=== PATIENT | female | born 1960 | race Caucasian/White ===

== ENCOUNTER → 2019-08-25 09:53 | Outpatient (CLI) | payer MEDICARE ==
[~2019-08-25 09:53] MED LIST: ELIQUIS5 MG PO; HYDROCODON-ACET15 ML PO; ISOSORBIDE MONO60 M1 PO; KLONOPIN0.5 MG PO; LASIX20 MG PO; LIPITOR80 MG PO; PACERONE200 MG PO; PROVENTIL/2.5 MG/3 M; SEROQUEL50 MG PO; TOPROL XL25 MG PO; VITAMIN D250000 UNIT PO; WELLBUTRIN SR150 MG PO
[2019-08-25 13:10] LABS: APPEARANCE CLOUDY (CLEAR); COLOR YELLOW (YELLOW); GLUCOSE NEGATIVE (NEGATIVE); NITRITE POSITIVE (NEGATIVE); SPECIFIC GRAVITY 1.025 (1.005-1.020)
[2019-08-25 13:11] LABS: BACTERIA MANY /hpf (NEGATIVE); BILIRUBIN NEGATIVE (NEGATIVE); EPITHELIAL CELLS 0-5 /hpf (0-5); KETONE NEGATIVE (NEGATIVE); MUCUS <1+ /lpf (NONE SEEN); PROTEIN TRACE mg/dL (NEGATIVE); RED CELLS - URINE RARE /hpf (0-5); UROBILINOGEN NORMAL (NORMAL); WHITE CELLS - URINE RARE /hpf (NEGATIVE)
== END | disposition home or self-care (01) ==
LOC: D.PAN 08-22 14:30
PROVIDERS: ATTEND Orthopaedic Surgery
DX: M17.12 Unilateral primary osteoarthritis, left knee (principal)

== ENCOUNTER → 2020-04-19 16:10 | Outpatient (CLI) | payer MEDICARE ==
[2019-10-08 13:55] VITALS: BMI 50.1
[~2020-04-19 16:10] MED LIST changes: +HYDROCODON-ACE1 EA10 PO; +KEFLEX500 MG PO; +OXYCODONE HCL5 M1 PO; +TAMIFLU75 MG PO; +VISTARIL50 MG PO
== END | disposition home or self-care (01) ==
LOC: D.LAB 16:10
PROVIDERS: ATTEND Orthopaedic Surgery
DX: M17.11 Unilateral primary osteoarthritis, right knee (principal); R50.9 Fever, unspecified

== ENCOUNTER 2020-04-26 13:28 | Inpatient (IN) | payer MEDICARE, MEDICAID ==
[~2020-04-26] VITALS: Ht 160 cm; Wt 134.5 kg
[2020-05-24] MEDS ORDERED: HYDROCODON-ACE1 EA10 PO (10:47)
[2020-05-24 13:03] LABS: ANION GAP 8.9 mmol/L (8-16); CALCIUM 9.3 mg/dL (8.5-10.1); CARBON DIOXIDE 29.5 mmol/L (21.0-32.0); CREATININE - SERUM 1.5 mg/dL (0.6-1.3); POTASSIUM - SERUM 3.4 mmol/L (3.5-5.1)
[2020-05-24 13:10] LABS: BASOPHILS 0.7 % (0-2); EOSINOPHILS 2.9 % (0-7); HEMATOCRIT 39.8 % (36.0-48.0); HEMOGLOBIN 12.1 g/dL (12-16); IMMATURE GRANULOCYTES 0.2 % (0-5); LYMPHOCYTES 34.7 % (15-50); MCH 26.4 pg (26.0-34.0); MCHC 30.4 g/dL (31.0-37.0); MCV 86.9 fL (80.0-100.0); MEAN PLATELET VOLUME 11.2 fL (7.4-10.4); MONOCYTES 7.9 % (2-11); NEUTROPHILS 53.6 % (40-80); RBC 4.58 10x6/uL (4.00-5.40); RDW 16.5 % (11.5-14.5); WBC 8.9 10x3/uL (4.8-10.8)
[2020-05-24 13:20] LABS: BILIRUBIN NEGATIVE (NEGATIVE); KETONE NEGATIVE (NEGATIVE); NITRITE NEGATIVE (NEGATIVE)
[2020-05-24 13:25] LABS: PLATELET COUNT 297 10x3/uL (130-400)
[2020-05-24 13:49] LABS: INR 0.94 (0.85-1.17); PROTIME 12.5 SECONDS (11.6-15.0)
[2020-05-25] VITALS (13 sets, daily range): BP systolic 116–178; BP diastolic 60–112; BMI 49.7; BMI 52.6
--- NOTE | 2020-05-25 12:05 | NUR ---
THROUGH TRAFFIC KEPT TO A MINIMUM. HIBALENS AND ALCOHOL USED TO CLEAN BEFORE PREPPING. STERILE GOWNED AND GLOVED TO PREP WITH CHLORAPREP.
--- NOTE | 2020-05-25 14:12 | NUR ---
DAUGHTER NORA CALLED AND IN ROOM NOW. BED ALARM ON. QUICK START, ADMISSION HISTORY, AND SUICIDE SCREENING DONE. CL IN REACH. PT EATING AT THIS TIME. WILL DO SHIFT ASSESSMENT AFTER PT EATS. MEDS GIVEN PER EMAR. WCTM
--- NOTE | 2020-05-25 20:00 | NUR ---
ALERT RESTING IN BED CPM IN USE, DENIES NEEDS AT THIS TIME, SEE SHIFT ASSESSMENT, CALL LIGHT IN REACH
[2020-05-26] VITALS: BP 147/85
--- NOTE | 2020-05-26 02:30 | NUR ---
IN AN OUT CATH DONE DUE TO PT STATES HAS NOT VOIDED, 500CC STEPAN COLORED URINE RETURNED
[2020-05-26 04:00] VITALS: BP 135/88
[2020-05-26 06:46] LABS: BASOPHILS 0.9 % (0-2); EOSINOPHILS 2.2 % (0-7); HEMATOCRIT 36.3 % (36.0-48.0); HEMOGLOBIN 10.6 g/dL (12-16); IMMATURE GRANULOCYTES 0.2 % (0-5); LYMPHOCYTES 20.2 % (15-50); MCH 26.2 pg (26.0-34.0); MCHC 29.2 g/dL (31.0-37.0); MEAN PLATELET VOLUME 11.6 fL (7.4-10.4); MONOCYTES 10.6 % (2-11); NEUTROPHILS 65.9 % (40-80); PLATELET COUNT 272 10x3/uL (130-400); RBC 4.05 10x6/uL (4.00-5.40); RDW 16.5 % (11.5-14.5)
[2020-05-26 06:56] LABS: MCV 89.6 fL (80.0-100.0)
[2020-05-26 07:06] LABS: ALBUMIN 2.9 g/dL (3.4-5.0); ANION GAP 11.3 mmol/L (8-16); BILIRUBIN - TOTAL 0.36 mg/dL (0.2-1.3); CALCIUM 8.2 mg/dL (8.5-10.1); CARBON DIOXIDE 27.9 mmol/L (21.0-32.0); CREATININE - SERUM 1.7 mg/dL (0.6-1.3); PROTEIN - SERUM 6.6 g/dL (6.4-8.2)
[2020-05-26 07:07] LABS: POTASSIUM - SERUM 4.2 mmol/L (3.5-5.1)
--- NOTE | 2020-05-26 07:49 | NUR ---
AWAKE AND ALERT. ORIENTED X3. REQUESTED AND GIVEN 1MG DILAUDID SLOW IVP FOR C/O NO PAIN RELIEF IN PM. WILL MONITOR. LUNGS ARE CLEAR BILATERALLY, NO COUGH NOTED. SKIN IS INTACT EXCEPT INCISION TO LEFT KNEE WHICH HAS A DRY INTACT DRESSING IN PLACE. REQUESTED CPM OFF AT THIS TIME. BREAKFAST SERVED IN ROOM. DOING WELL WITH FEEDING SELF. DENIES NEEDS.
[2020-05-26 09:00] VITALS: BP 127/82
--- NOTE | 2020-05-26 09:00 | NUR ---
CONFUSED AT THIS TIME. UNABLE TO FOLLOW SIMPLE INSTRUCTIONS. PT WILL PASS THIS AM FOR THERAPY. WILL MONITOR. BED ALARM ON.
--- NOTE | 2020-05-26 09:30 | NUR ---
COUGHING LOUDLY AND CHOKING. GURGLING LOUDLY IN THROAT. O2 SAT AT 55 ON INITIAL CHECK. ALEX FROM RT HERE AND PLACED ON OXYGEN. REPOSITIONED IN BED FOR BETTER LUNG EXPANTION. O2 SAT UP TO 81% AT THIS TIME. PLACED ON 8L HIGH FLOW AND O2 SAT UP TO 94%. PATIENT STATED THIS IS HER NORMAL. NO FURTHER COUGHING NOTED. COLOR WNL. DENIES NEEDS.
[2020-05-26 10:37] VITALS: Ht 160 cm; Wt 134.5 kg
--- NOTE | 2020-05-26 11:00 | NUR ---
RESTING QUIETLY. RESPIRATIONS EVEN AND UNLABORED.
--- NOTE | 2020-05-26 12:30 | NUR ---
LUNCH SERVED IN ROOM. FEEDS SELF. CONTINUES SOMEWHAT CONFUSED.
--- NOTE | 2020-05-26 14:36 | OP ---
PATIENT NAME: IRVIN RAMIRES MEDICAL RECORD: [id number] :62 LOCATION:[facility] D.1209 ADMISSION DATE:05/25/20 SURGEON: LONNY VILLA DO DATE OF OPERATION: 05/25/2020 PROCEDURE PERFORMED: Right total knee arthroplasty. PREOPERATIVE DIAGNOSIS: Right knee osteoarthritis. POSTOPERATIVE DIAGNOSIS: Right knee osteoarthritis. INDICATIONS: Ms. Ramires is a 59-year-old female who has had right knee pain for quite some time. She had her left knee replaced a while back, I believe this year. She did okay with that and wanted the right one done. She is aware of the risks including infection, bleeding, damage to nerves or vessels in the area, continued pain, arthrofibrosis, failure of implants and fracture, blood clots, and even and she signed the consent. SURGEON: Lonny Villa DO DESCRIPTION OF PROCEDURE: The patient was taken to operative suite after receiving a block by anesthesia in the preoperative area, laid in the supine position, given general anesthetic, and an LMA was placed. She was given 2 g of Ancef and 80 mg of gentamicin preoperatively and after that, the right lower extremity was prepped and draped in sterile fashion. A time-out was performed and everyone was in agreement with the correct side, site, patient, and procedure. She did have an LMA placed after being sedated. The incision was then marked out over the anterior knee and covered in Ioban. . Then, using a 10 blade scalpel, I made careful dissection down to the capsule through the skin. Using a fresh 10 blade, I did a medial parapatellar approach to the capsule and everted the patella and removed part of the fat pad and then milled down the patella for implant. I then brought the knee into flexion and removed the ACL and then put a drill into the intramedullary canal of the femur. I then used an intramedullary guide on the distal femur, pinned it in place, and cut the distal femur. I then exposed the proximal tibia using extramedullary guide and pinned it and cut the proximal tibia. I removed the menisci and the proximal tibia cut. I then brought the knee into extension, coagulating vessels with Aquamantys any bleeding. I then used a 10 extension block and it fit very well. I then flexed the knee, upsized the femur to be 62.5. A 62.5 four-in-one cutting block was then put into place. Richard wing was used to ensure there was no notching. I then pinned that in the place and cut the distal femur through the four-in-one cutting block. I then remove that and then put the posterior stabilized guide on and pinned it into place and cut the block out from posterior stabilized notch of the femur. I then drilled the lugholes, removed the guide, and put on the trial. I then put in the tibia, 10 poly, and the tray and ranged it, marked the rotation, removed that, and drilled for the patella. I then removed the trial of the femur. I then exposed the tibia, sized it to be a 67, and then reamed and punched it and put extra holes in the tibia for the cement. Cement was then mixed and put in the tibia and on the implant. The implant was impacted on the tibia and into place. Excess cement was removed. I then impacted the femur on, put a 10 poly in between them, and brought the knee into extension, cleaned off of the patella with irrigation and curetted. The holes were filled with cement and then on the patella implant, squeezed into place and then while that was squeezed and held into place, excess cement was removed from that and the tibia again. The 10% povidone-iodine solution with OPERATIVE REPORT [id number] IRVIN RAMIRES 500 mL normal saline solution was put in the knee and let it sit for 3 minutes and irrigated out with over a liter of normal saline. I then trialed with a 12 poly. A 12 poly fit well, 12 posterior stabilized plus poly was put in and secured in place with the locking bar. The locking bar was clicked in and then Yvonne and vancomycin and tobramycin powder were put in the knee. I then closed the capsule with #1 Vicryl in a [id number] fashion. This was done by myself and Joaquin Roy, certified director medical surgical. Joaquin then closed the skin with 2-0 Vicryl in inverted interrupted fashion and put a ZipLine on the knee. She was dressed not with a dressing but with a Prevena Restore VAC, awakened, and taken to recovery in stable condition. BLOOD LOSS: Approximately 200 mL. COMPLICATIONS: None. NTS:[id number] Voice Confirmation ID: [id number] DOCUMENT ID: [id number] LONNY VILLA DO at 1436 CC: [id number] DICTATION DATE: 05/25/20 1158 HIGH SPEED OPERATOR: 05/25/20 194 [facility] IN [facility] [address] [id number]
--- NOTE | 2020-05-26 18:46 | NUR ---
RESTING QUIETLY IN BED WITH EYES CLOSED. SPOKE WITH SAEED STOKES RE NEED OF MALA FOR PROBABLE RETENTION. ORDER RECEIVED.
[2020-05-26 20:00] VITALS: BP 121/82
--- NOTE | 2020-05-26 20:00 | NUR ---
RESTING IN BED AROUSES EASILY BUT APPEARS DROWSEY, O2 IN USE, CPM IN USE, SEE SHIFT ASSESSMENT, CALL LIGHT IN REACH, SAEED ANP NOTIFIED OF ELEVATED TEMP AND RHONCHI IN LUNGS, ORDERS RECIEVED FOR BLOOD CULTURES AND UA AND TO CALL DR VICTORIA
--- NOTE | 2020-05-26 20:30 | NUR ---
DR VICTORIA HERE TO SEE PT, ORDERS RECIEVED, MEDEIROS CATH PLACED AT THIS TIME WITH RETURN OF 500CC STEPAN COLORED URINE
--- NOTE | 2020-05-26 21:30 | NUR ---
IV RESITED 22G X 1 ATTEMPT LEFT FORARM, ANTIABIOTICS STARTED ORDERED
[2020-05-26 23:55] LABS: BILIRUBIN NEGATIVE (NEGATIVE); KETONE NEGATIVE (NEGATIVE); NITRITE NEGATIVE (NEGATIVE); UROBILINOGEN NORMAL mg/dL (< 2)
[2020-05-26 23:57] LABS: BACTERIA MODERATE HPF (NONE SEEN); EPITHELIAL CELLS 0-5 /hpf (0-5); YEAST >1+ /hpf (NONE SEEN)
[2020-05-27 05:00] VITALS: BP 98/53
--- NOTE | 2020-05-27 06:00 | NUR ---
HAS IS IN ROOM ENCOURAGED TO USE 10X HR WHILE AWAKE
--- NOTE | 2020-05-27 07:30 | NUR ---
AWAKE AND ALERT. ORIENTED X3. NO C/O AT THIS TIME. LUNGS ARE CLEAR BUT DIMINISHED THROUGHOUT. CONTINUES WITH PRODUCTIVE COUGH. SKIN IS INTACT WITHOUT REDNESS EXCEPT INCISION TO RIGHT KNEE WHICH HAS A PROVENA WOUND VAC IN PLACE WITH SCANT OUTPUT. WILL CONTINUE TO MONITOR. SL TO LEFT FOREARM IS PATENT WITHOUT REDNESS AT INSERTION SITE. MEDEIROS PATENT WITH CLEAR YELLOW URINE. CPM IN PLACE TO RIGHT KNEE AT THIS TIME. DENIES NEEDS.
[2020-05-27 07:40] LABS: BASOPHILS 0.1 % (0-2); EOSINOPHILS 0 % (0-7); HEMATOCRIT 30.9 % (36.0-48.0); IMMATURE GRANULOCYTES 0.3 % (0-5); LYMPHOCYTES 6.7 % (15-50); MCHC 29.1 g/dL (31.0-37.0); MCV 89.3 fL (80.0-100.0); MEAN PLATELET VOLUME 11.4 fL (7.4-10.4); MONOCYTES 4.4 % (2-11); NEUTROPHILS 88.5 % (40-80); PLATELET COUNT 244 10x3/uL (130-400); RBC 3.46 10x6/uL (4.00-5.40); RDW 16.6 % (11.5-14.5)
[2020-05-27 07:42] LABS: WBC 13.1 10x3/uL (4.8-10.8)
[2020-05-27 08:00] LABS: ALBUMIN 2.6 g/dL (3.4-5.0); ANION GAP 13.1 mmol/L (8-16); BILIRUBIN - TOTAL 0.43 mg/dL (0.2-1.3); CALCIUM 8.2 mg/dL (8.5-10.1); CARBON DIOXIDE 25.6 mmol/L (21.0-32.0); CREATININE - SERUM 2.4 mg/dL (0.6-1.3); POTASSIUM - SERUM 4.7 mmol/L (3.5-5.1); PROTEIN - SERUM 5.8 g/dL (6.4-8.2)
[2020-05-27 08:04] VITALS: BP 148/89
--- NOTE | 2020-05-27 10:05 | NUR ---
ATE ALL OF BREAKFAST. TOOK AM MEDS WITHOUT DIFFICULTY. REQUESTED AND GIVEN ONE HYDROCODONE PO FOR C/O RIGHT KNEE PAIN LEVEL 8. WILL MONITOR.
--- NOTE | 2020-05-27 10:47 | EC ---
PATIENT:IRVIN RAMIRES DATE OF SERVICE: 05/25/20 SEX: F MEDICAL RECORD: [id number] DATE OF : 62 [facility] AGE OF PATIENT: 59 ADMISSION DATE: 05/25/20 REFERRING PHYSICIAN: INTERPRETING PHYSICIAN: OUMOU WRIGHT MD ECHOCARDIOGRAM REPORT ECHO CHARGES 4 ECHO COMPLETE Date: 05/26/20 CLINICAL DIAGNOSIS: R/O CHF ECHOCARDIOGRAPHIC MEASUREMENTS (adult normal given) AC root (d.<3.7cm) 3.4 cm LV Septum d (<1.2 cm> 1.4 cm Valve Excursion 1.4 cm LV Septum (systole) 1.5 cm Left Atria (s.<4.0cm> 3.6 cm LVPW d(<1.2cm) 1.0 cm RV (d.<2.3cm) 2.9 cm LVPW (sytole) 1.3 cm LV diastole(<5.6CM) 6.8 cm MV E-F(>70mm/sec) cm LV systole 5.2 cm LVOT Diameter 1.8 cm MV exc.(>10mm) 0.6 cm Est.ejection fraction (50-75%) % DOPPLER: LVIT cm/sec A 122 cm/sec E 120 cm/sec LA cm/sec RVSP 21 mmHg LVOT 100 cm/sec AOP1/2T m/s Asc. Ao 159 cm/sec RVOT 104 cm/sec RA cm/sec PA 120 cm/sec AV Gradient Peak 10.1 mmHg AV Mean 5.8 mmHg AV Area 1.3 cm MV Gradient Peak 4.5 mmHg MV Mean 2.4 mmHg MV Area cm COMMENTS: Laborer Wood Preserving Plant: Candice NOLASCO Image Processing Engineer: 3 Dr. Lopez TAPE# [id number] Pericardial Effusion N DATE OF SERVICE: Adequate 2D, color flow imaging, spectral Doppler, and M-mode. Mild LVH. LV internal dimensions are normal. Wall motion normal. EF greater than or equal to 55%. Aortic valve is tricuspid. No evidence of stenosis by Doppler interrogation. Left atrium is normal. Mitral valve shows no prolapse. Trace MR. Right-sided chambers are grossly normal. Trace TR. TRANSINT:[id number] Voice Confirmation ID: [id number] DOCUMENT ID: [id number] ECHOCARDIOGRAM REPORT [id number] IRVIN RAMIRES OUMOU WRIGHT MD at 1047 CC: [id number] DICTATION DATE: 05/26/20 1643 BUSINESS PERFORMANCE SPECIALIST: 05/26/20 2334 ADM IN [place] [id number] [place] [id number]
--- NOTE | 2020-05-27 13:30 | NUR ---
AMBULATED WITH PT. O2 SAT DROPPED TO 85%. AFTER O2 PLACED AT 2L NC RAPID RECOVERY TO 92%. WILL MONITOR.
[2020-05-27 16:04] VITALS: BP 145/78
--- NOTE | 2020-05-27 16:30 | NUR ---
FOUND WITH O2 OFF. SAT AT 89%. O2 PLACED AT 2L NC SAT UP TO 93% WITHIN A FEW SECONDS.
[2020-05-27 18:17] VITALS: BP 114/73
--- NOTE | 2020-05-27 18:27 | NUR ---
ATE ALL OF SUPPER. DENIES NEEDS. NO CHANGES NOTED. MEDEIROS CLAMPED AT THIS TIME TO COLLECT SPECIMEN.
--- NOTE | 2020-05-27 22:23 | NUR ---
RECEIVED PATIENT IN ROOM. PATIENT IS AAOX3. PATIENT IS ON CPM MACHINE AND DOING WELL. PATIENT HAS A MEDEIROS THAT WAS CLAMPED TO OBTAIN A URINE SPECIMEN FOR UA AND CULTURE WHICH WAS OBTAINED PER THIS NURSE AND TAKEN TO LAB. PATIENT TOOK HS MEDS. CALL LIGHT WITHIN REACH. WILL FOLLOW POC
[2020-05-28 00:32] VITALS: BP 155/65
[2020-05-28 06:35] VITALS: BP 142/79
[2020-05-28 06:56] LABS: BASOPHILS 0.1 % (0-2); EOSINOPHILS 0 % (0-7); HEMATOCRIT 28.1 % (36.0-48.0); HEMOGLOBIN 8.4 g/dL (12-16); IMMATURE GRANULOCYTES 0.1 % (0-5); LYMPHOCYTES 9.5 % (15-50); MCH 26.2 pg (26.0-34.0); MCHC 29.9 g/dL (31.0-37.0); MCV 87.5 fL (80.0-100.0); MEAN PLATELET VOLUME 11.2 fL (7.4-10.4); MONOCYTES 7.1 % (2-11); NEUTROPHILS 83.2 % (40-80); PLATELET COUNT 222 10x3/uL (130-400); RBC 3.21 10x6/uL (4.00-5.40); RDW 16.5 % (11.5-14.5); WBC 14.5 10x3/uL (4.8-10.8)
--- NOTE | 2020-05-28 07:29 | NUR ---
PT ASLEEP ON BACK. NO NEEDS AT THIS TIME. CL IN REACH. BED ALARM ON. WCTM
[2020-05-28 07:39] LABS: ALBUMIN 2.4 g/dL (3.4-5.0); ALKALINE PHOSPHATASE 97 U/L (30-120); ALT (SGPT) 10 U/L (10-68); BILIRUBIN - TOTAL 0.31 mg/dL (0.2-1.3); CALC OSMOLALITY 294 mosm/kg (275-300); CALCIUM 8.4 mg/dL (8.5-10.1); CARBON DIOXIDE 23.8 mmol/L (21.0-32.0); CHLORIDE - SERUM 110 mmol/L (98-107); CREATINE KINASE 274 UL (21-215); CREATININE - SERUM 1.9 mg/dL (0.6-1.3); GLUCOSE 125 mg/dL (74-106); PROTEIN - SERUM 5.5 g/dL (6.4-8.2); SODIUM 144 mmol/L (136-145); UREA NITROGEN 32 mg/dL (7-18); URIC ACID 8.4 mg/dL (2.6-7.2); eGFR NON AFRICAN AMERICAN 29 mL/min (90-120)
[2020-05-28 07:41] LABS: CKMB 1.8 U/L (0.0-3.6)
[2020-05-28 08:32] VITALS: BP 142/78
[2020-05-28] MEDS ORDERED: KEFLEX500 MG PO (10:14)
[2020-05-28] MEDS ORDERED: VISTARIL50 MG PO (10:14)
[2020-05-28] MEDS ORDERED: HYDROCODON-ACE1 EA10 PO (10:14)
[2020-05-28 11:13] VITALS: BP 152/84
--- NOTE | 2020-05-28 13:04 | NUR ---
Nutrition Follow-up: POD 3 right TKA Diet: Regular PO intake: was 25-50% x all. She states that recently her appetite has improved. States that she ate 100% of her breakfast meal. She was eating lunch at time of my visit and had eaten much of it already. She also states that her sister is bring food into her. Last BM: 06/15/20. Wt: 296.5# (05/26/20) Meds noted: solumedrol, lasix. Labs noted: Alb 2.4(L), Glu 125(H), GFR 29(L), BUN 32(H), Cr 1.9(H) Recommend continue current diet. RD following.
--- NOTE | 2020-05-28 13:34 | NUR ---
PT ASSISTED TO BSC AND BACK TO BED. CL IN REACH. WCTM
--- NOTE | 2020-05-28 15:15 | MORECARE ---
CASE MANAGEMENT DISCHARGE SUMMARY PATIENT: IRVIN RAMIRES UNIT: [id number] ADM DATE: 05/25/20 AGE: 59 : 62 SEX: F ROOM/BED: D.1209 AUTHOR: JOSE E BROWN PHYSICIAN: REFERRING PHYSICIAN: VINCE VILLA DO DATE OF SERVICE: 05/28/20 Discharge Plan Patient Name: IRVIN RAMIRES Facility: [facility]:[place] : 1960 Planned Disposition: Assisted Facility Anticipated Discharge Date: 05/31/20 Discharge Date: Expected LOS: 6 Initial Reviewer: [email or web address] Initial Review Date: 05/28/2020 Generated: 05/28/20 4:14 pm Patient Name: IRVIN RAMIRES Page [id number] at 1515 All edits/amendments must be made on the electronic document DICTATION DATE: 05/28/20 1515 AREA INTELLIGENCE TECHNICIAN: KYLAH 05/28/20 1515 RPT#: [id number] DC DATE: STATUS: ADM IN [facility] [address] [place] [address] END OF REPORT
--- NOTE | 2020-05-28 15:35 | MORECARE ---
CASE MANAGEMENT DISCHARGE SUMMARY PATIENT: IRVIN RAMIRES UNIT: [id number] ADM DATE: 05/25/20 AGE: 59 : 62 SEX: F ROOM/BED: D.1209 AUTHOR: JOSE E BROWN PHYSICIAN: REFERRING PHYSICIAN: VINCE VILLA DO DATE OF SERVICE: 05/28/20 Discharge Plan Patient Name: IRVIN RAMIRES [facility] [facility] 1960 Planned Disposition: Long-Term Facility Anticipated Discharge Date: 05/31/20 Discharge Date: Expected LOS: 6 Initial Reviewer: [email or web address] Initial Review Date: 05/28/2020 Generated: 05/28/20 4:34 pm External Providers External Provider: [facility] Next Contact Date: Service Request Date: Service Type: Resolution: Reviewer: Comments: Last DP export: 05/28/20 2:15 p Patient Name: IRVIN RAMIRES Page [id number] at 1535 All edits/amendments must be made on the electronic document DICTATION DATE: 05/28/20 1534 ADMINISTRATIVE SUPPORT COORDINATOR: KYLAH 05/28/20 1534 RPT#: [id number] DC DATE: STATUS: ADM IN [facility] [address] [place] [address] END OF REPORT
--- NOTE | 2020-05-28 15:43 | MORECARE ---
CASE MANAGEMENT DISCHARGE SUMMARY PATIENT: IRVIN RAMIRES UNIT: [id number] ADM DATE: 05/25/20 AGE: 59 : 62 SEX: F ROOM/BED: D.1209 AUTHOR: JOSE E BROWN PHYSICIAN: REFERRING PHYSICIAN: VINCE VILLA DO DATE OF SERVICE: 05/28/20 Discharge Plan Patient Name: IRVIN RAMIRES Facility: [facility]:[place] : 1960 Planned Disposition: Intermediate Facility Anticipated Discharge Date: 05/31/20 Discharge Date: Expected LOS: 6 Initial Reviewer: [email or web address] Initial Review Date: 05/28/2020 Generated: 05/28/20 4:43 pm DCPIA - Discharge Planning Initial Assessment Updated by [email or web address]: Holly Cesar on 05/28/20 3:38 pm * Is the patient Alert and Oriented? Yes * How many steps to enter\exit or inside your home? 4 no rail * PCP Yolanda in [place] * Pharmacy [facility] in [place] * Preadmission Environment Home with Family * ADLs Independent * Equipment Rolling Walker * List name and contact numbers for known caregivers / representatives who currently or will assist patient after discharge: Candice Cope, sister, Gilbert Ramires, Son [phone] * Verbal permission to speak to the caregivers and representatives has been obtained from the patient. Yes * Community resources currently utilized None * Additional services required to return to the preadmission environment? Yes * Can the patient safely return to the preadmission environment? No * Has this patient been hospitalized within the prior 30 days at any hospital? No Last DP export: 05/28/20 2:35 p Patient Name: IRVIN RAMIRES Page [id number] at 1543 All edits/amendments must be made on the electronic document DICTATION DATE: 05/28/201542 DEPOSITING MACHINE OPERATOR: KYLAH 05/28/201542 RPT#: [id number] DC DATE: STATUS: ADM IN [facility] [address] [place] [address] END OF REPORT
[2020-05-28 15:49] VITALS: BP 124/68
--- NOTE | 2020-05-28 15:50 | MORECARE ---
CASE MANAGEMENT DISCHARGE SUMMARY PATIENT: IRVIN RAMIRES UNIT: [id number] ADM DATE: 05/25/20 AGE: 59 : 62 SEX: F ROOM/BED: D.1209 AUTHOR: KEVIN,DOC PHYSICIAN: REFERRING PHYSICIAN: VINCE VILLA DO DATE OF SERVICE: 05/28/20 Discharge Plan Patient Name: IRVIN RAMIRES Facility: [facility]:[place] : 1960 Planned Disposition: Assisted Facility Anticipated Discharge Date: 05/31/20 Discharge Date: Expected LOS: 6 Initial Reviewer: [email or web address] Initial Review Date: 05/28/2020 Generated: 05/28/20 4:49 pm Comments DCP- Discharge Planning Updated by [email or web address]: Holly Cesar on 05/28/20 2:[address] Patient Name: IRVIN RAMIRES Admission Status: Elective Accout number: [id number] Admission Date: 05-25-2020 : 1960 Admission Diagnosis: Attending: VINCE VILLA Current LOS: 3 Anticipated DC Date: 05-31-2020 Planned Disposition: Assisted Facility Primary Insurance: [facility] [employer] Discharge Planning Comments: CM met with patient to discuss discharge planning / needs. Patient states her plan is to go to [facility] for rehab at discharge. States prior to hospitalization she lived with her daughter and was independent with ADL's and IADL's. States she has a rolling walker at her house in [place]. States her daughter is not able to bring the walker to the hospital d/t her work schedule. States she will just use a walker at [facility] like she did last time. Patient signed EMMY for [facility] SNF. CM called [facility]. Spoke with Titus about referral. Faxed records as requested. Awaiting determination and auth. Coat Finisher: Holly Cesar DCPIA - Discharge Planning Initial Assessment Updated by [email or web address]: Holly Cesar on 05/28/20 3:38 pm * Is the patient Alert and Oriented? Yes * How many steps to enter\exit or inside your home? 4 no rail * PCP Yolanda in [place] * Pharmacy [facility] in [place] * Preadmission Environment Home with Family * ADLs Independent * Equipment Rolling Walker * List name and contact numbers for known caregivers / representatives who currently or will assist patient after discharge: Candice Cope, sister, Gilbert Ramires, Son [phone] * Verbal permission to speak to the caregivers and representatives has been obtained from the patient. Yes * Community resources currently utilized None * Additional services required to return to the preadmission environment? Yes * Can the patient safely return to the preadmission environment? No * Has this patient been hospitalized within the prior 30 days at any hospital? No Last DP export: 05/28/20 2:43 p Patient Name: IRVIN RAMIRES Page 39691 at 1550 All edits/amendments must be made on the electronic document DICTATION DATE: 05/28/201548 JAVA TECH: KYLAH 05/28/201548 RPT#: [id number] DC DATE: STATUS: ADM IN [facility] [address] [place] [address] END OF REPORT
--- NOTE | 2020-05-28 16:21 | NUR ---
SPOKE WITH RT ABOUT DR AMES WANTING A ONE TIME DOSE OF XOPENEX 0.63 UPDRAFT FOR PT.
--- NOTE | 2020-05-28 16:26 | MORECARE ---
CASE MANAGEMENT DISCHARGE SUMMARY PATIENT: IRVIN RAMIRES UNIT: [id number] ADM DATE: 05/25/20 AGE: 59 : 62 SEX: F ROOM/BED: D.1209 AUTHOR: KEVIN,DOC PHYSICIAN: REFERRING PHYSICIAN: VINCE VILLA DO DATE OF SERVICE: 05/28/20 Discharge Plan Patient Name: IRVIN RAMIRES Facility: [facility]:[place] : 1960 Planned Disposition: Fpc Facility Anticipated Discharge Date: 05/31/20 Discharge Date: Expected LOS: 6 Initial Reviewer: [email or web address] Initial Review Date: 05/28/2020 Generated: 05/28/20 5:25 pm Comments DCP- Discharge Planning Updated by [email or web address]: Holly Cesar on 05/28/20 2:[address] Patient Name: IRVIN RAMIRES Admission Status: Elective Accout number: [id number] Admission Date: 05-25-2020 : 1960 Admission Diagnosis: Attending: VINCE VILLA Current LOS: 3 Anticipated DC Date: 05-31-2020 Planned Disposition: Fpc Facility Primary Insurance: [facility] [employer] SOLUTIONS Discharge Planning Comments: CM met with patient to discuss discharge planning / needs. Patient states her plan is to go to [facility] for rehab at discharge. States prior to hospitalization she lived with her daughter and was independent with ADL's and IADL's. States she has a rolling walker at her house in [place]. States her daughter is not able to bring the walker to the hospital d/t her work schedule. States she will just use a walker at [facility] like she did last time. Patient signed EMMY for [facility] SNF. CM called [facility]. Spoke with Titus about referral. Faxed records as requested. Awaiting determination and auth. Digital Advisor: Holly Cesar DCPIA - Discharge Planning Initial Assessment Updated by [email or web address]: Holly Cesar on 05/28/20 3:38 pm * Is the patient Alert and Oriented? Yes * How many steps to enter\exit or inside your home? 4 no rail * PCP Yolanda in [place] * Pharmacy [facility] in [place] * Preadmission Environment Home with Family * ADLs Independent * Equipment Rolling Walker * List name and contact numbers for known caregivers / representatives who currently or will assist patient after discharge: Candice Cope, sister, Gilbert Ramires, Son [phone] * Verbal permission to speak to the caregivers and representatives has been obtained from the patient. Yes * Community resources currently utilized None * Additional services required to return to the preadmission environment? Yes * Can the patient safely return to the preadmission environment? No * Has this patient been hospitalized within the prior 30 days at any hospital? No Last DP export: 05/28/20 2:50 p Patient Name: IRVIN RAMIRES Page 09009 at 1626 All edits/amendments must be made on the electronic document DICTATION DATE: 05/28/201624 AIR SAMPLER: KYLAH 05/28/201624 RPT#: [id number] DC DATE: STATUS: ADM IN [facility] [address] [place] [address] END OF REPORT
[2020-05-28 18:57] VITALS: BP 141/90
[2020-05-29] VITALS: BP 125/73
[2020-05-29 04:00] VITALS: BP 149/63
[2020-05-29 07:49] LABS: BASOPHILS 0 % (0-2); EOSINOPHILS 0 % (0-7); HEMATOCRIT 27.5 % (36.0-48.0); HEMOGLOBIN 8.4 g/dL (12-16); IMMATURE GRANULOCYTES 0.7 % (0-5); LYMPHOCYTES 7.6 % (15-50); MCH 26.4 pg (26.0-34.0); MCHC 30.5 g/dL (31.0-37.0); MCV 86.5 fL (80.0-100.0); MEAN PLATELET VOLUME 11.1 fL (7.4-10.4); MONOCYTES 6.6 % (2-11); NEUTROPHILS 85.1 % (40-80); RBC 3.18 10x6/uL (4.00-5.40); RDW 16.8 % (11.5-14.5); WBC 15.3 10x3/uL (4.8-10.8)
[2020-05-29 07:54] LABS: PLATELET COUNT 290 10x3/uL (130-400)
[2020-05-29 08:09] LABS: ALBUMIN 2.4 g/dL (3.4-5.0); ANION GAP 13.1 mmol/L (8-16); BILIRUBIN - TOTAL 0.4 mg/dL (0.2-1.3); CALCIUM 9.2 mg/dL (8.5-10.1); CREATININE - SERUM 1.7 mg/dL (0.6-1.3); POTASSIUM - SERUM 4.1 mmol/L (3.5-5.1); PROTEIN - SERUM 6.4 g/dL (6.4-8.2)
[2020-05-29 08:12] VITALS: BP 155/77
--- NOTE | 2020-05-29 09:59 | NUR ---
PT IN BED WITH CPM IN PLACE TO RIGHT LOWER EXTREMITY. PLACED AT 0800 PER PT REQUEST. AND REMOVED AT 0955 PER PT REQUEST. PROVIDED EDUCATION REGARDING CPM USE, PT CONTINUES TO REQUEST CPM TO BE REMOVED FOR THE TIME. IV RESITED TO RIGHT FOREARM 22G X 1 STICK. GOOD BLOOD RETURN, EASILY FLUSHES. PT DAVID WELL. PT REPORTS PAIN 3/10 AT THIS TIME. PREVENA DRESSING TO RIGHT LOWER EXTREMITY IN PLACE. DENIES FURTHER NEEDS AT THIS TIME. CL WITHIN REACH. ENCOURAGED TO CALL WITH NEEDS. CONTINUE POC
[2020-05-29 11:41] VITALS: BP 142/74
[2020-05-29 16:00] VITALS: BP 149/61
--- NOTE | 2020-05-29 17:45 | NUR ---
CPM PLACED TO PT RIGHT LOWER EXTREMITY
--- NOTE | 2020-05-29 19:47 | NUR ---
PATIENT RESTING IN BED WITH NO S/S OF DISTRESS. PATIENT DENIES NEEDS AT THIS TIME. BED IN LOWEST POSITION AND CALL LIGHT WITHIN REACH. ENCOURAGED THE PATIENT TO CALL IF SHE HAS NEEDS.
--- NOTE | 2020-05-29 21:13 | NUR ---
ADMINISTERED MEDS PER ORDERS. PATIENT DENIES NEEDS. WILL CONTINUE TO MONITOR.
[2020-05-29 21:35] VITALS: BP 149/76
[2020-05-30 04:00] VITALS: BP 168/94
[2020-05-30 06:36] LABS: BASOPHILS 0.1 % (0-2); EOSINOPHILS 0 % (0-7); HEMOGLOBIN 8.6 g/dL (12-16); IMMATURE GRANULOCYTES 0.7 % (0-5); LYMPHOCYTES 9.9 % (15-50); MCH 25.7 pg (26.0-34.0); MCHC 29.7 g/dL (31.0-37.0); MCV 86.6 fL (80.0-100.0); MEAN PLATELET VOLUME 11.1 fL (7.4-10.4); MONOCYTES 5.7 % (2-11); NEUTROPHILS 83.6 % (40-80); PLATELET COUNT 302 10x3/uL (130-400); RBC 3.35 10x6/uL (4.00-5.40); WBC 11.9 10x3/uL (4.8-10.8)
[2020-05-30 06:38] LABS: ALBUMIN 2.4 g/dL (3.4-5.0); ANION GAP 10.9 mmol/L (8-16); BILIRUBIN - TOTAL 0.34 mg/dL (0.2-1.3); CALCIUM 9.1 mg/dL (8.5-10.1); CARBON DIOXIDE 28.2 mmol/L (21.0-32.0); CREATININE - SERUM 1.8 mg/dL (0.6-1.3); POTASSIUM - SERUM 4.1 mmol/L (3.5-5.1); PROTEIN - SERUM 6.5 g/dL (6.4-8.2)
[2020-05-30 08:00] VITALS: BP 141/77
[2020-05-30 11:51] VITALS: BP 125/69
--- NOTE | 2020-05-30 18:53 | NUR ---
1345 AMBULATED WITH PT USING WALKER DAVID WELL
--- NOTE | 2020-05-30 18:53 | NUR ---
0830 CPM TAKEN OFF
--- NOTE | 2020-05-30 19:19 | NUR ---
PATIENT RESTING IN BED WITH NO S/S OF DISTRESS AND DENIES NEEDS AT THIS TIME. BED IN LOWEST POSITION AND CALL LIGHT WITHIN REACH. ENCOURAGED THE PATIENT TO CALL IF SHE HAS NEEDS. WILL CONTINUE TO MONITOR.
[2020-05-30 20:00] VITALS: BP 143/75
--- NOTE | 2020-05-30 21:25 | NUR ---
ADMINISTERED MEDS PER ORDERS. PATIENT REFUSED PREDNISONE AND LASIX STATING SHE WANTS TO SLEEP TONIGHT. PATIENT DENIES OTHER NEEDS. WILL CONTINUE TO MONITOR.
--- NOTE | 2020-05-30 23:36 | NUR ---
RESPONDED TO PATIENT'S CALL LIGHT. SWELLING AND PAIN NOTED TO PATIENT'S IV SITE TO HER LEFT FA. REMOVED INFILTRATED PIV WITH TIP INTACT. PATIENT STATED SHE DOES NOT WANT ANOTHER IV PLACED AT THIS TIME. PATIENT REQUESTED TO LEAVE IV OUT AND SPEAK WITH HER DOCTOR TOMORROW.
[2020-05-31 04:00] VITALS: BP 129/93
--- NOTE | 2020-05-31 05:12 | NUR ---
PATIENT REQUESTED TO SPEAK WITH DR. VILLA THIS MORNING PRIOR TO PLACING HER ON THE CPM. PATIENT STATES IT IS TOO PAINFUL AND SHE DOES NOT HAVE ENOUGH RANGE OF MOTION WITH THE DRESSING THAT IS ON HER KNEE.
[2020-05-31 06:30] LABS: ALBUMIN 2.3 g/dL (3.4-5.0); ANION GAP 8.2 mmol/L (8-16); BILIRUBIN - TOTAL 0.37 mg/dL (0.2-1.3); CALCIUM 8.3 mg/dL (8.5-10.1); CARBON DIOXIDE 27.6 mmol/L (21.0-32.0); CREATININE - SERUM 1.9 mg/dL (0.6-1.3); POTASSIUM - SERUM 3.8 mmol/L (3.5-5.1); PROTEIN - SERUM 6.2 g/dL (6.4-8.2)
--- NOTE | 2020-05-31 06:50 | NUR ---
A&O SITTING UP ON THE SIDE OF THE BED. UP WITH WALKER. NO C/O PAIN. NO S/S OF ACUTE DISTRESS NOTED. POD #6 RIGHT TOTAL KNEE, DRESSING C/D/I WITH WOUND VAC. ON IV ACCESS. ON TELEMETRY 71 SR. DENIES ANY NEEDS AT THIS TIME. CALL LIGHT IN REACH. WILL CONTINUE TO MONITOR.
[2020-05-31 07:08] LABS: BASOPHILS 0.2 % (0-2); EOSINOPHILS 0.5 % (0-7); HEMATOCRIT 27.4 % (36.0-48.0); HEMOGLOBIN 8.3 g/dL (12-16); LYMPHOCYTES 23.5 % (15-50); MCH 26.1 pg (26.0-34.0); MCHC 30.3 g/dL (31.0-37.0); MCV 86.2 fL (80.0-100.0); MEAN PLATELET VOLUME 10.8 fL (7.4-10.4); MONOCYTES 9.3 % (2-11); NEUTROPHILS 64.5 % (40-80); PLATELET COUNT 322 10x3/uL (130-400); RBC 3.18 10x6/uL (4.00-5.40); RDW 16.9 % (11.5-14.5); WBC 13.2 10x3/uL (4.8-10.8)
[2020-05-31 09:05] VITALS: BP 145/79
[2020-05-31 12:38] VITALS: BP 147/80
--- NOTE | 2020-05-31 14:03 | MORECARE ---
CASE MANAGEMENT DISCHARGE SUMMARY PATIENT: IRVIN RAMIRES UNIT: [id number] ADM DATE: 05/25/20 AGE: 59 : 62 SEX: F ROOM/BED: D.2235 AUTHOR: KEVIN,DOC PHYSICIAN: REFERRING PHYSICIAN: VINCE VILLA DO DATE OF SERVICE: 05/31/20 Discharge Plan Patient Name: IRVIN RAMIRES Facility: [facility]:[place] : 1960 Planned Disposition: Long Term Facility Anticipated Discharge Date: 05/31/20 Discharge Date: Expected LOS: 6 Initial Reviewer: [id number] Initial Review Date: 05/28/2020 Generated: 05/31/20 3:03 pm DCP- Discharge Planning Updated by [id number]: Holly Cesar on 05/28/20 2:[address] Patient Name: IRVIN RAMIRES Admission Status: Elective Accout number: [id number] Admission Date: 05-25-2020 : 1960 Admission Diagnosis: Attending: VINCE VILLA Current LOS: 3 Anticipated DC Date: 05-31-2020 Planned Disposition: Long Term Facility Primary Insurance: [facility] MEDICARE SOLUTIONS Discharge Planning Comments: CM met with patient to discuss discharge planning / needs. Patient states her plan is to go to [facility] for rehab at discharge. States prior to hospitalization she lived with her daughter and was independent with ADL's and IADL's. States she has a rolling walker at her house in [place]. States her daughter is not able to bring the walker to the hospital d/t her work schedule. States she will just use a walker at [facility] like she did last time. Patient signed EMMY for [facility] SNF. CM called [facility]. Spoke with Titus about referral. Faxed records as requested. Awaiting determination and auth. Assistant Controller: Holly Cesar DCPIA - Discharge Planning Initial Assessment Updated by [email or web address]: Holly Csear on 05/28/20 3:38 pm * Is the patient Alert and Oriented? Yes * How many steps to enter\exit or inside your home? 4 no rail * PCP Yolanda in [place] * Pharmacy [facility] in [place] * Preadmission Environment Home with Family * ADLs Independent * Equipment Rolling Walker * List name and contact numbers for known caregivers / representatives who currently or will assist patient after discharge: Candice Cope, sister, Gilbert Ramires, Son [phone] * Verbal permission to speak to the caregivers and representatives has been obtained from the patient. Yes * Community resources currently utilized None * Additional services required to return to the preadmission environment? Yes * Can the patient safely return to the preadmission environment? No * Has this patient been hospitalized within the prior 30 days at any hospital? No External Providers External Provider: [facility] Next Contact Date: Service Request Date: Service Type: Resolution: Reviewer: Comments: Coverage Notice Reviewer: [id number] Nickolas Mccormick Notice Issued Date-Time: 05/29/2020 14:03 Notice Type: Patient Choice Letter Notice Delivered To: Patient Relationship to Patient: Self Solderer Production Line Name: Irvin Ramires Delivery Method: HAND - Hand Delivered Mariel Days: Prior Verbal Notification: Recipient Understood Notice: Yes Recipient Signature: Yes Med Rec Note Co-signed by Attending: Coverage Notice Comment: [facility] Reviewer: [id number] Nickolas Galicia Notice Issued Date-Time: 05/31/2020 14:02 Notice Type: IM Discharge Notice Notice Delivered To: Patient Relationship to Patient: Solderer Production Line Name: Delivery Method: HAND - Hand Delivered Mariel Days: Prior Verbal Notification: Recipient Understood Notice: Yes Recipient Signature: Yes Med Rec Note Co-signed by Attending: Coverage Notice Comment: Last DP export: 05/28/20 3:26 p Patient Name: IRVIN RAMIRES Page [id number] at 1403 All edits/amendments must be made on the electronic document DICTATION DATE: 05/31/20 1403 RELIEF MAN: KYLAH 05/31/20 1403 RPT#: [id number] DC DATE: STATUS: ADM IN [facility] [address] [place] [address] END OF REPORT
--- NOTE | 2020-05-31 14:16 | MORECARE ---
CASE MANAGEMENT DISCHARGE SUMMARY PATIENT: IRVIN RAMIRES UNIT: [id number] ADM DATE: 05/25/20 AGE: 59 : 62 SEX: F ROOM/BED: D.2235 AUTHOR: KEVIN,DOC PHYSICIAN: REFERRING PHYSICIAN: VINCE VILLA DO DATE OF SERVICE: 05/31/20 Discharge Plan Patient Name: IRVIN RAMIRES Facility: [facility]:[place] : 1960 Planned Disposition: Fpc Facility Anticipated Discharge Date: 05/31/20 Discharge Date: Expected LOS: 6 Initial Reviewer: [id number] Initial Review Date: 05/28/2020 Generated: 05/31/20 3:16 pm Comments DCP- Discharge Planning Updated by [email or web address]: Shyla Galicia on 05/31/20 1:[address] Patient Name: IRVIN RAMIRES Admission Status: Elective Accout number: [id number] Admission Date: 05-25-2020 : 1960 Admission Diagnosis: Attending: VINCE VILLA Current LOS: 6 Anticipated DC Date: 05-31-2020 Planned Disposition: Fpc Facility Primary Insurance: [facility] [employer] Discharge Planning Comments: FAXED UPDATED NOTES TO [facility] CALL BACK IF THEY WILL BE RECEIVING AUTH FOR SNF TODAY. Test Design Engineer: Shyla Galicia DCP- Discharge Planning Updated by [email or web address]: Holly Cesar on 05/28/20 2:[address] Patient Name: IRVIN RAMIRES Admission Status: Elective Accout number: [id number] Admission Date: 05-25-2020 : 1960 Admission Diagnosis: Attending: VINCE VILLA Current LOS: 3 Anticipated DC Date: 05-31-2020 Planned Disposition: Fpc Facility Primary Insurance: [facility] [employer] Discharge Planning Comments: CM met with patient to discuss discharge planning / needs. Patient states her plan is to go to [facility] for rehab at discharge. States prior to hospitalization she lived with her daughter and was independent with ADL's and IADL's. States she has a rolling walker at her house in [place]. States her daughter is not able to bring the walker to the hospital d/t her work schedule. States she will just use a walker at [facility] like she did last time. Patient signed EMMY for [facility] SNF. CM called [facility]. Spoke with Titus about referral. Faxed records as requested. Awaiting determination and auth. Test Design Engineer: Holly Cesar DCPIA - Discharge Planning Initial Assessment Updated by [id number]: Holly Cesar on 05/28/20 3:38 pm * Is the patient Alert and Oriented? Yes * How many steps to enter\exit or inside your home? 4 no rail * PCP Yolanda in [place] * Pharmacy [facility] in [place] * Preadmission Environment Home with Family * ADLs Independent * Equipment Rolling Walker * List name and contact numbers for known caregivers / representatives who currently or will assist patient after discharge: Candice Cope, sister, Gilbert Ramires, Son [phone] * Verbal permission to speak to the caregivers and representatives has been obtained from the patient. Yes * Community resources currently utilized None * Additional services required to return to the preadmission environment? Yes * Can the patient safely return to the preadmission environment? No * Has this patient been hospitalized within the prior 30 days at any hospital? No Coverage Notice Reviewer: [id number] Nickolas Mccormick Notice Issued Date-Time: 05/29/2020 14:03 Notice Type: Patient Choice Letter Notice Delivered To: Patient Relationship to Patient: Self Log Manager Name: Irvin Ramires Delivery Method: HAND - Hand Delivered Mariel Days: Prior Verbal Notification: Recipient Understood Notice: Yes Recipient Signature: Yes Med Rec Note Co-signed by Attending: Coverage Notice Comment: [facility] Reviewer: [id number] Nickolas Galicia Notice Issued Date-Time: 05/31/2020 14:02 Notice Type: IM Discharge Notice Notice Delivered To: Patient Relationship to Patient: Log Manager Name: Delivery Method: HAND - Hand Delivered Mariel Days: Prior Verbal Notification: Recipient Understood Notice: Yes Recipient Signature: Yes Med Rec Note Co-signed by Attending: Coverage Notice Comment: Last DP export: 05/31/20 1:03 p Patient Name: IRVIN RAMIRES Page [id number] at 1416 All edits/amendments must be made on the electronic document DICTATION DATE: 05/31/20 1416 SUPERVISOR GRINDING: KYLAH 05/31/20 1416 RPT#: [id number] DC DATE: STATUS: ADM IN [facility] [address] [place] [address] END OF REPORT
[2020-05-31 15:00] VITALS: BP 132/80
--- NOTE | 2020-05-31 19:36 | NUR ---
I have reviewed this patient and I concur with the Shift Assessment completed by the Licensed Practical Nurse today this shift.
[2020-05-31 20:00] VITALS: BP 113/56
[2020-06-01] VITALS: BP 145/61
--- NOTE | 2020-06-01 00:36 | NUR ---
REC'D CHGE OF SHIFT WALKING ROUNDS. IN BED.DRSG. RIGHT KNEE DRY AND TACT SMALL AMT. SWELLING PRESENT TO KNEE.SMALL DINE SIZE SUPERFICIAL SKIN BREAKAGE NOTED RIGHT LATERAL THIGH STATES THE BAR ON CPM HAS BEEN RUBBING MY LEG IS WHY I'VE REFUSED CPM FOOT PINK AND WARM PEDAL PULSE PRESENT WIGGLES TOES AND DORSIFLEXES WITHOUT DIFFICULTY. WILL CONTINUE TO MONITOR FOR ANY CHGES IN NEUROVASCULAR STATUS AND FOLLOW CURRENT PLAN OF CARE
[2020-06-01 04:00] VITALS: BP 159/89
[2020-06-01 06:50] LABS: BASOPHILS 0.2 % (0-2); EOSINOPHILS 2.1 % (0-7); HEMATOCRIT 28.3 % (36.0-48.0); HEMOGLOBIN 8.6 g/dL (12-16); LYMPHOCYTES 32.9 % (15-50); MCH 26.3 pg (26.0-34.0); MCHC 30.4 g/dL (31.0-37.0); MCV 86.5 fL (80.0-100.0); MEAN PLATELET VOLUME 10.8 fL (7.4-10.4); MONOCYTES 9.2 % (2-11); NEUTROPHILS 51.6 % (40-80); PLATELET COUNT 347 10x3/uL (130-400); RBC 3.27 10x6/uL (4.00-5.40); WBC 13.1 10x3/uL (4.8-10.8)
[2020-06-01 07:00] VITALS: BP 140/65
[2020-06-01 07:11] LABS: ALBUMIN 2.4 g/dL (3.4-5.0); ANION GAP 11.6 mmol/L (8-16); BILIRUBIN - TOTAL 0.34 mg/dL (0.2-1.3); CALCIUM 8.6 mg/dL (8.5-10.1); CARBON DIOXIDE 26.1 mmol/L (21.0-32.0); CREATININE - SERUM 1.9 mg/dL (0.6-1.3); POTASSIUM - SERUM 3.7 mmol/L (3.5-5.1); PROTEIN - SERUM 6.2 g/dL (6.4-8.2)
--- NOTE | 2020-06-01 07:46 | NUR ---
REFUSED CPM AT 0530 AM
--- NOTE | 2020-06-01 08:14 | NUR ---
PT STATED THAT SHE WANTS TO USE HER CPM MACHINE BUT SHE HAS AN ABRASION ON RLE THAT HURTS WHEN USING CPM. APPLIED BOARDER GAUZE TO WOUND AND STARTED CPM MACHINE. TOLERATING WELL. PT WAS ADIMATE ABOUT LWTTING THE PHYSICIAN KNOW THAT SHE WAS NOT REFUSING THE CPM SHE JUST NEEDED THE WOUND ADDRESSED FIRST. CONTINUING TO MONITOR.
[2020-06-01 11:00] VITALS: BP 124/74
--- NOTE | 2020-06-01 13:32 | MORECARE ---
CASE MANAGEMENT DISCHARGE SUMMARY PATIENT: IRVIN RAMIRES UNIT: [id number] ADM DATE: 05/25/20 AGE: 59 : 62 SEX: F ROOM/BED: D.2235 AUTHOR: KEVIN,DOC PHYSICIAN: REFERRING PHYSICIAN: VINCE VILLA DO DATE OF SERVICE: 06/01/20 Discharge Plan Patient Name: IRVIN RAMIRES Facility: [facility]:[place] : 1960 Planned Disposition: Care Home Facility Anticipated Discharge Date: 05/31/20 Discharge Date: Expected LOS: 6 Initial Reviewer: [id number] Initial Review Date: 05/28/2020 Generated: 06/01/20 2:31 pm Comments DCP- Discharge Planning Updated by [id number]: Shyla Galicia on 06/01/20 12:[address] Patient Name: IRVIN RAMIRES Admission Status: Elective Accout number: [id number] Admission Date: 05-25-2020 : 1960 Admission Diagnosis: Attending: VINCE VILLA Current LOS: 7 Anticipated DC Date: 05-31-2020 Planned Disposition: Care Home Facility Primary Insurance: [facility] MEDICARE SOLUTIONS Discharge Planning Comments: [place] [facility] [place]. SOON IT IS BACK PATIENT CAN DC TO [facility]. [facility] HAS AUTH FROM [employer]. CM TO FOLLOW AND ASSIST NEEDED. Plant Buyer: Shyla Galicia DCP- Discharge Planning Updated by [email or web address]: Shyla Galicia on 05/31/20 1:[address] Patient Name: IRVIN RAMIRES Admission Status: Elective Accout number: [id number] Admission Date: 05-25-2020 : 1960 Admission Diagnosis: Attending: VINCE VILLA Current LOS: 6 Anticipated DC Date: 05-31-2020 Planned Disposition: Care Home Facility Primary Insurance: [facility] MEDICARE SOLUTIONS Discharge Planning Comments: FAXED UPDATED NOTES TO [facility], WAITING CALL BACK IF THEY WILL BE RECEIVING AUTH FOR SNF TODAY. Plant Buyer: Shyla Galicia DCP- Discharge Planning Updated by [email or web address]: Holly Cesar on 05/28/20 2:[address] Patient Name: IRVIN RAMIRES Admission Status: Elective Accout number: [id number] Admission Date: 05-25-2020 : 1960 Admission Diagnosis: Attending: VINCE VILLA Current LOS: 3 Anticipated DC Date: 05-31-2020 Planned Disposition: Care Home Facility Primary Insurance: [facility] MEDICARE SOLUTIONS Discharge Planning Comments: CM met with patient to discuss discharge planning / needs. Patient states her plan is to go to [facility] for rehab at discharge. States prior to hospitalization she lived with her daughter and was independent with ADL's and IADL's. States she has a rolling walker at her house in [place]. States her daughter is not able to bring the walker to the hospital d/t her work schedule. States she will just use a walker at [facility] like she did last time. Patient signed EMMY for [facility] SNF. CM called [facility]. Spoke with Titus about referral. Faxed records as requested. Awaiting determination and auth. Plant Buyer: Holly Cesar DCPIA - Discharge Planning Initial Assessment Updated by [id number]: Holly Cesar on 05/28/20 3:38 pm * Is the patient Alert and Oriented? Yes * How many steps to enter\exit or inside your home? 4 no rail * PCP Yolanda in [place] * Pharmacy [facility] in [place] * Preadmission Environment Home with Family * ADLs Independent * Equipment Rolling Walker * List name and contact numbers for known caregivers / representatives who currently or will assist patient after discharge: Candice Cope, sister, Gilbert Ramires, Son [phone] * Verbal permission to speak to the caregivers and representatives has been obtained from the patient. Yes * Community resources currently utilized None * Additional services required to return to the preadmission environment? Yes * Can the patient safely return to the preadmission environment? No * Has this patient been hospitalized within the prior 30 days at any hospital? No External Providers External Provider: [facility] Next Contact Date: Service Request Date: Service Type: Resolution: Reviewer: Comments: Coverage Notice Reviewer: [id number] Nickolas Mccormick Notice Issued Date-Time: 05/29/2020 14:03 Notice Type: Patient Choice Letter Notice Delivered To: Patient Relationship to Patient: Self Aircraft Structural Fitter Name: Irvin Ramires Delivery Method: HAND - Hand Delivered Mariel Days: Prior Verbal Notification: Recipient Understood Notice: Yes Recipient Signature: Yes Med Rec Note Co-signed by Attending: Coverage Notice Comment: Jeff Chavis Reviewer: [id number] Nickolas Galicia Notice Issued Date-Time: 05/31/2020 14:02 Notice Type: IM Discharge Notice Notice Delivered To: Patient Relationship to Patient: Aircraft Structural Fitter Name: Delivery Method: HAND - Hand Delivered Mariel Days: Prior Verbal Notification: Recipient Understood Notice: Yes Recipient Signature: Yes Med Rec Note Co-signed by Attending: Coverage Notice Comment: Last DP export: 05/31/20 1:16 p Patient Name: IRVIN RAMIRES Page [id number] at 1332 All edits/amendments must be made on the electronic document DICTATION DATE: 06/01/20 1331 DISPATCHER SERVICE: KYLAH 06/01/20 1331 RPT#: [id number] DC DATE: STATUS: ADM IN [facility] [address] [place] [address] END OF REPORT
--- NOTE | 2020-06-01 14:20 | NUR ---
NUTRITION F/U CHART REVIEWED. PT TOLERATING REG DIET WITH 100% INTAKE RECENT MEALS. WILL CONTINUE TO PROVIDE DIET, HONOR FOOD PREFERENCES. RD FOLLOWING
[2020-06-01 15:00] VITALS: BP 102/64
[2020-06-01 20:00] VITALS: BP 134/61
[2020-06-02] VITALS: BP 152/61
--- NOTE | 2020-06-02 03:23 | NUR ---
I have reviewed this patient and I concur with the Shift Assessment completed by the Licensed Practical Nurse today this shift.
[2020-06-02 04:00] VITALS: BP 161/74
[2020-06-02 06:42] LABS: BASOPHILS 0.2 % (0-2); EOSINOPHILS 2.9 % (0-7); HEMATOCRIT 29.3 % (36.0-48.0); HEMOGLOBIN 8.7 g/dL (12-16); LYMPHOCYTES 29.2 % (15-50); MCH 25.7 pg (26.0-34.0); MCHC 29.7 g/dL (31.0-37.0); MCV 86.7 fL (80.0-100.0); MEAN PLATELET VOLUME 10.8 fL (7.4-10.4); MONOCYTES 7.7 % (2-11); PLATELET COUNT 386 10x3/uL (130-400); RBC 3.38 10x6/uL (4.00-5.40)
[2020-06-02 07:13] LABS: ALBUMIN 2.5 g/dL (3.4-5.0); ANION GAP 13.2 mmol/L (8-16); BILIRUBIN - TOTAL 0.37 mg/dL (0.2-1.3); CALCIUM 8.4 mg/dL (8.5-10.1); CARBON DIOXIDE 25.8 mmol/L (21.0-32.0); CREATININE - SERUM 1.7 mg/dL (0.6-1.3); PROTEIN - SERUM 6.4 g/dL (6.4-8.2)
[2020-06-02 08:02] VITALS: BP 114/78
[2020-06-02] MEDS ORDERED: NICODERM CQ1 EAC1 TOPICAL (13:19)
--- NOTE | 2020-06-02 17:50 | MORECARE ---
CASE MANAGEMENT DISCHARGE SUMMARY PATIENT: IRVIN RAMIRES UNIT: [id number] ADM DATE: 05/25/20 AGE: 59 : 62 SEX: F ROOM/BED: D.2235 AUTHOR: KEVIN,DOC PHYSICIAN: REFERRING PHYSICIAN: VINCE VILLA DO DATE OF SERVICE: 06/02/20 Discharge Plan Patient Name: IRVIN RAMIRES Facility: [facility]:[place] : 1960 Planned Disposition: Shelter Facility Anticipated Discharge Date: 05/31/20 Discharge Date: 06/02/2020 Expected LOS: 6 Initial Reviewer: [id number] Initial Review Date: 05/28/2020 Generated: 06/02/20 6:49 pm Comments DCP- Discharge Planning Updated by [email or web address]: Shyla Galicia on 06/01/20 12:[address] Patient Name: IRVIN RAMIRES Admission Status: Elective Accout number: [id number] Admission Date: 05-25-2020 : 1960 Admission Diagnosis: Attending: VINCE VILLA Current LOS: 7 Anticipated DC Date: 05-31-2020 Planned Disposition: Shelter Facility Primary Insurance: [facility] MEDICARE SOLUTIONS Discharge Planning Comments: [place] [facility] [place]. SOON IT IS BACK PATIENT CAN DC TO [facility]. [facility] HAS AUTH FROM [employer]. CM TO FOLLOW AND ASSIST NEEDED. Reimbursement Liaison: Shyla Galicia DCP- Discharge Planning Updated by [email or web address]: Shyla Galicia on 05/31/20 1:[address] Patient Name: IRVIN RAMIRES Admission Status: Elective Accout number: [id number] Admission Date: 05-25-2020 : 1960 Admission Diagnosis: Attending: VINCE VILLA Current LOS: 6 Anticipated DC Date: 05-31-2020 Planned Disposition: Shelter Facility Primary Insurance: [facility] MEDICARE SOLUTIONS Discharge Planning Comments: FAXED UPDATED NOTES TO [facility], WAITING CALL BACK IF THEY WILL BE RECEIVING AUTH FOR SNF TODAY. Reimbursement Liaison: Shyla Galicia DCP- Discharge Planning Updated by [email or web address]: Holly Cesar on 05/28/20 2:[address] Patient Name: IRVIN RAMIRES Admission Status: Elective Accout number: [id number] Admission Date: 05-25-2020 : 1960 Admission Diagnosis: Attending: VINCE VILLA Current LOS: 3 Anticipated DC Date: 05-31-2020 Planned Disposition: Shelter Facility Primary Insurance: [facility] MEDICARE SOLUTIONS Discharge Planning Comments: CM met with patient to discuss discharge planning / needs. Patient states her plan is to go to [facility] for rehab at discharge. States prior to hospitalization she lived with her daughter and was independent with ADL's and IADL's. States she has a rolling walker at her house in [place]. States her daughter is not able to bring the walker to the hospital d/t her work schedule. States she will just use a walker at [facility] like she did last time. Patient signed EMMY for [facility] SNF. CM called [facility]. Spoke with Titus about referral. Faxed records as requested. Awaiting determination and auth. Reimbursement Liaison: Holly Cesar DCPIA - Discharge Planning Initial Assessment Updated by [id number]: Holly Cesar on 05/28/20 3:38 pm * Is the patient Alert and Oriented? Yes * How many steps to enter\exit or inside your home? 4 no rail * PCP Yolanda in [place] * Pharmacy [facility] in [place] * Preadmission Environment Home with Family * ADLs Independent * Equipment Rolling Walker * List name and contact numbers for known caregivers / representatives who currently or will assist patient after discharge: Candice Cope, sister, Gilbert Ramires, Son [phone] * Verbal permission to speak to the caregivers and representatives has been obtained from the patient. Yes * Community resources currently utilized None * Additional services required to return to the preadmission environment? Yes * Can the patient safely return to the preadmission environment? No * Has this patient been hospitalized within the prior 30 days at any hospital? No Coverage Notice Reviewer: [id number] Nickolas Mccormick Notice Issued Date-Time: 05/29/2020 14:03 Notice Type: Patient Choice Letter Notice Delivered To: Patient Relationship to Patient: Self Auto Mechanic Name: Irvin Ramires Delivery Method: HAND - Hand Delivered Mariel Days: Prior Verbal Notification: Recipient Understood Notice: Yes Recipient Signature: Yes Med Rec Note Co-signed by Attending: Coverage Notice Comment: [facility] Reviewer: [id number] Nickolas Galicia Notice Issued Date-Time: 05/31/2020 14:02 Notice Type: IM Discharge Notice Notice Delivered To: Patient Relationship to Patient: Auto Mechanic Name: Delivery Method: HAND - Hand Delivered Mariel Days: Prior Verbal Notification: Recipient Understood Notice: Yes Recipient Signature: Yes Med Rec Note Co-signed by Attending: Coverage Notice Comment: Last DP export: 06/01/20 12:32 p Patient Name: IRVIN RAMIRES Page [id number] at 1750 All edits/amendments must be made on the electronic document DICTATION DATE: 06/02/201748 PATIENT SERVICE REP: KYLAH 06/02/201748 RPT#: [id number] DC DATE:06/02/20 STATUS: DIS IN [facility] [address] [place] [address] END OF REPORT
== END 2020-06-02 14:21 | DRG 469 ==
LOC: D.MS 05-25 08:30 → D.M3 05-25 08:30 → D.SDCHOLD 05-25 08:30 → D.M3 05-25 10:27 → D.SDCHOLD 05-25 10:30 → D.MS 05-29 14:49
PROVIDERS: Family Medicine Adult Medicine; Internal Medicine Nephrology; ADMIT Orthopaedic Surgery; ATTEND Orthopaedic Surgery
PROC: 0SRC0JZ Replacement of Right Knee Joint with Synthetic Substitute, Open Approach (ICD-10-PCS; principal; 2020-05-25 10:45)
DX: M17.11 Unilateral primary osteoarthritis, right knee (principal); J96.01 Acute respiratory failure with hypoxia; J18.9 Pneumonia, unspecified organism; F17.203 Nicotine dependence unspecified, with withdrawal; D62 Acute posthemorrhagic anemia; N17.9 Acute kidney failure, unspecified; N39.0 Urinary tract infection, site not specified; J44.1 Chronic obstructive pulmonary disease with (acute) exacerbation; I50.32 Chronic diastolic (congestive) heart failure; Z68.43 Body mass index [BMI] 50.0-59.9, adult; I25.10 Atherosclerotic heart disease of native coronary artery without angina pectoris; J44.9 Chronic obstructive pulmonary disease, unspecified; K21.9 Gastro-esophageal reflux disease without esophagitis; F41.8 Other specified anxiety disorders; Z86.711 Personal history of pulmonary embolism; Z79.01 Long term (current) use of anticoagulants; I11.0 Hypertensive heart disease with heart failure; G47.33 Obstructive sleep apnea (adult) (pediatric); Z91.19 Patient's noncompliance with other medical treatment and regimen; I48.91 Unspecified atrial fibrillation